=== PATIENT | male | born 1955 | race Caucasian/White ===

== ENCOUNTER 2021-02-09 00:06 | Emergency (ER) | payer OTHER ==
[~2021-02-09] VITALS: Ht 160 cm; Wt 72.6 kg
[2021-02-09 00:21] VITALS: BP 110/81
[2021-02-09] MEDS ORDERED: KETOROLAC TROMETHAMINE INJ 60 MG/2 ML VIAL IM ONE ×2 (00:54→01:00)
--- NOTE | 2021-02-09 01:03 | NUR ---
Patient eloped from facility. ER MD notified.
== END 2021-02-09 01:04 | disposition left against medical advice (07) ==
LOC: ER 00:12
DX: M54.5 Low back pain (principal); Z53.21 Procedure and treatment not carried out due to patient leaving prior to being seen by health care provider
CPT/HCPCS: J1885